=== PATIENT | male | born 1955 | race Caucasian/White ===

== ENCOUNTER 2021-01-06 01:46 | Emergency (ER) | payer BC ==
[~2021-01-06] VITALS: Ht 172.7 cm; Wt 83.9 kg
[2021-01-06 02:46] LABS: HEMOGLOBIN 13.7 gm/dl (14.0-17.5); RED BLOOD COUNT 4.6 M/UL (4.20-5.50); WHITE BLOOD COUNT 5.5 K/UL (4.5-11.0)
[2021-01-06 03:08] LABS: BUN/CREATININE RATIO 16 (0-10)
[2021-01-06] MEDS ORDERED: CITALOPRAM HBR10 MG PO (04:24)
[2021-01-06] MEDS ORDERED: PLAVIX 75 MG TA75 MG PO (04:24)
[2021-01-06] MEDS ORDERED: ASPIRIN EC81 MG PO (04:25)
[2021-01-06] MEDS ORDERED: FLONASE 0.05% N16 GM (04:25)
[2021-01-06] MEDS ORDERED: ZETIA10 MG PO (04:26)
[2021-01-06] MEDS ORDERED: FLOMAX 0.4 MG0.4 MG PO (04:26)
[2021-01-06] MEDS ORDERED: NITROSTAT 0.40.4 MG SL (04:26)
[2021-01-06] MEDS ORDERED: NORVASC5 MG PO (10:34)
== END 2021-01-06 11:02 | disposition home or self-care (01) ==
LOC: ER1 01:46 → CDU 03:53 → ER1 03:53 → CDU 03:53
PROVIDERS: Physician Assistant
DX: R07.89 Other chest pain (principal); R94.39 Abnormal result of other cardiovascular function study; F41.0 Panic disorder [episodic paroxysmal anxiety]; I10 Essential (primary) hypertension; E87.6 Hypokalemia; R94.31 Abnormal electrocardiogram [ECG] [EKG]; Z79.82 Long term (current) use of aspirin; Z79.899 Other long term (current) drug therapy; Z20.822 Contact with and (suspected) exposure to COVID-19
CPT/HCPCS: 36415; 71045; 80053; 82550; 82553; 83874; 83880; 84484; 85025; 93005; 99285; U0002

== ENCOUNTER → 2021-07-07 | Outpatient (CLI) | payer BC ==
[~2021-07-07] MED LIST: ASPIRIN EC81 MG PO; CITALOPRAM HBR10 MG PO; FLOMAX 0.4 MG0.4 MG PO; FLONASE 0.05% N16 GM; NITROSTAT 0.40.4 MG SL; NORVASC5 MG PO; PLAVIX 75 MG TA75 MG PO; ZETIA10 MG PO
== END ==
LOC: CT 14:03
DX: R06.02 Shortness of breath (principal)
CPT/HCPCS: 71275; Q9967

== ENCOUNTER → 2021-09-02 | Outpatient (CLI) | payer BC | LOC: US 08:12 → NM 09:00 | DX: R10.11 Right upper quadrant pain (principal); K80.20 Calculus of gallbladder without cholecystitis without obstruction; K76.89 Other specified diseases of liver | CPT/HCPCS: 76705; 78226; A9537 ==

== ENCOUNTER → 2021-10-05 | Outpatient (CLI) | payer BC | LOC: KOH-I 15:39 | DX: R59.0 Localized enlarged lymph nodes (principal) | CPT/HCPCS: 71250 ==

== ENCOUNTER → 2021-10-10 | Outpatient (CLI) | payer BC | LOC: HEART 5 15:32 | DX: R91.1 Solitary pulmonary nodule (principal) | CPT/HCPCS: 94010; 94729 ==